=== PATIENT | female | born 1955 | race Caucasian/White ===

== ENCOUNTER 2017-04-10 07:19 | Day surgery (SDC) | payer OTHER ==
[~2017-04-10 07:19] MED LIST: RINGER'S SOLUTION,LACTATED 1,000 ML IV PRN
[2017-04-10] MEDS ORDERED: RINGER'S SOLUTION,LACTATED 1,000 ML IV ONE (08:16)
[2017-04-10] MEDS ORDERED: RINGER'S SOLUTION,LACTATED 1,000 ML IV PRN (09:13)
[2017-04-10 10:14] VITALS: BP 112/62
--- NOTE | 2017-04-10 14:23 | OR ---
Operative Report - Dictated Report Narrative: Operative Report Date of operation: 04/10/2017 Preoperative diagnosis: Epigastric pain. GERD symptoms despite medication Postoperative diagnosis: Chronic appearing gastropathy (pathology CLOtest pending) Operation: EGD with biopsies Surgeon: Dr Dee Anesthesia: JORDY PATRICK CRNA Indications for procedure: The patient is a 62-year-old female referred by Dr Andrade. She has epigastric and left upper quadrant pain and GERD symptoms despite medication. Findings: Chronic appearing gastropathy with fundic polyp formation (pathology CLOtest pending) Narrative of procedure: The patient was identified preoperatively, and prior to the administration of anesthetic a multidisciplinary timeout was observed With the patient in the recumbent position, a bite-block was placed, intravenous sedation administered, and the patient's eyes covered with a towel. The flexible fiberoptic gastroscope was advanced into the posterior pharynx which appeared normal. The supraglottic larynx appeared normal. The cords appeared normal, moved well, and opposed in the midline. The scope was advanced under direct vision into the proximal esophagus which appeared normal. The esophagus appeared freely distensible with normal mucosa. The esophageal mucosa appeared normal down to the gastroesophageal junction which was sharp and noninflamed. The GE junction appeared normally distensible. The scope was advanced into the stomach which was insufflated with air. There was a chronic appearing gastropathy with fundic polyp formation but no ginger ulcers or neoplastic lesions were appreciated including a retroflexed view of the gastric fundus. The scope was redirected toward the pylorus. The pylorus appeared patent. The scope was advanced into the duodenal bulb which appeared normal. The scope was advanced further to the horizontal portion of the duodenum which appeared normal, specifically the villous architecture appeared well preserved and clear bile was present. A biopsy of duodenal mucosa was obtained and submitted for pathology. The biopsy site was seen to be hemostatic. The scope was slowly withdrawn through the duodenal bulb with confirmation that no active ulcer was present. The scope was withdrawn into the stomach and outside sales account representative biopsies of gastric mucosa obtained for CLOtest and pathology. The biopsy sites were seen to be hemostatic. The insufflated air was removed from the stomach , the scope withdrawn from the patient, and the procedure terminated. The patient tolerated the anesthetic and procedure well without complication and was transferred back to the ambulatory surgery area awake and in stable condition. The patient remained stable throughout a period of postoperative observation, was able to tolerate po intake, and was up without assistance. I shared the operative findings with her and her , and she was given copies of the photographs which appear in the medical record. She was discharged home with instructions not to engage in hazardous activity today, but may return to normal activity tomorrow and advance diet as tolerated. She is to continue medications as listed in the history and physical exam. I made arrangements to contact the patient with the biopsy reports and will make further recommendation based upon that result. Reviewed and electronically signed
== END 2017-04-10 07:20 | disposition home or self-care (01) ==
LOC: AMB 07:19
PROVIDERS: ATTEND Surgery
PROC: 0DB68ZX Excision of Stomach, Via Natural or Artificial Opening Endoscopic, Diagnostic (ICD-10-PCS; 2017-04-10)
PROC: 0DB98ZX Excision of Duodenum, Via Natural or Artificial Opening Endoscopic, Diagnostic (ICD-10-PCS; principal; 2017-04-10 08:30)
DX: K31.7 Polyp of stomach and duodenum (principal); E03.9 Hypothyroidism, unspecified; M81.0 Age-related osteoporosis without current pathological fracture; M19.90 Unspecified osteoarthritis, unspecified site; F32.9 Major depressive disorder, single episode, unspecified; Z68.22 Body mass index [BMI] 22.0-22.9, adult

== ENCOUNTER 2019-04-24 03:58 | Inpatient (IN) ==
[2019-04-24] MEDS ORDERED: ONDANSETRON 4 MG TAB.RAPDIS PO ONE (04:41)
[2019-04-24] MEDS ORDERED: NORMAL SALINE 1,000 ML IV ONE ×2 (04:45→06:34)
[2019-04-24] MEDS ORDERED: ONDANSETRON HCL/PF 2 MG/ML VIAL IV ONE ×3 (04:46→08:12)
--- NOTE | 2019-04-24 04:54 | ERNOTE ---
Medical Problem HPI - Narrative Date of Service: 04/24/19 - General Chief Complaint: Nausea/Vomiting Time Seen by Provider: 04/24/19 04:23 Source: patient Exam Limitations: no limitations - Immun/Allergies/Home Medications Immunizations: IMMUNIZATION HX Immunizations Up to Date Yes History of Influenza Vaccine Yes Allergies/Adverse Reactions: Allergies Penicillins Allergy (Intermediate, Verified 04/24/19 04:23) Hives, Itching oxycodone [From Percocet] Allergy (Mild, Verified 04/24/19 04:23) Itching,rash propoxyphene [From Darvocet-N] Allergy (Mild, Verified 04/24/19 04:23) Itching, rash sulfamethoxazole [From Bactrim] Allergy (Mild, Verified 04/24/19 04:23) Other rash trimethoprim [From Bactrim] Allergy (Mild, Verified 04/24/19 04:23) Other rash morphine Allergy (Verified 04/24/19 04:23) sertraline Allergy (Verified 04/24/19 04:23) lightheaded, dizzy codeine Adverse Reaction (Intermediate, Verified 04/24/19 04:23) Other hallucinations fructose Adverse Reaction (Intermediate, Verified 04/24/19 04:23) Diarrhea and vomiting promethazine [From Phenergan] Adverse Reaction (Intermediate, Verified 04/24/19 04:23) Jitteriness metoclopramide [From Reglan] Adverse Reaction (Mild, Verified 04/24/19 04:23) Jitteriness Seasonal Allergies Adverse Reaction (Intermediate, Uncoded 04/24/19 04:23) rhinitis, itchy eyes Home Medications: HOME MEDICATIONS Esomeprazole Magnesium [Nexium] 40 mg PO DAILY 02/14/15 [Last Taken Unknown] Gabapentin 600 mg PO HS 02/14/15 [Last Taken Unknown] Loratadine [Claritin] 10 mg PO DAILY 02/14/15 [Last Taken Unknown] traMADol HCL [Ultram] 50 mg PO BID 02/14/15 [Last Taken Unknown] methotrexate sodium 2.5 mg tablet 2.5 mg PO Q7D tab 01/23/18 [Last Taken Unknown] folic acid 1 mg tablet 1 mg PO DAILY 01/27/18 [Last Taken Unknown] verapamil 120 mg 24 hr capsule,extended release 120 mg PO DAILY 30 Days #30 cap 08/24/18 [Last Taken Unknown] levothyroxine 50 mcg capsule 50 mcg PO DAILY #90 cap 11/19/18 [Last Taken Unknown] Meloxicam [Mobic] 15 mg PO DAILY 03/09/19 [Last Taken Unknown] Duloxetine HCl 30 mg PO DAILY 04/24/19 [Last Taken Unknown] Eszopiclone 3 mg PO HS 04/24/19 [Last Taken Unknown] - History of Present History Narrative: Patient is a 64 years old female who present complaining of abdominal pain, nausea, vomiting, dysuria and diarrhea, every 15 minutes since 8 PM, 9 hours ago. Patient reports eating chili at lunch yesterday, and started to feel not well shortly after. She rested all afternoon and then at around 8 PM this is when she started to feel sick. Her medical history is significant for total hysterectomy 22 years ago, 3 small bowel obstructions, pancreatitis, ankylosing spondylitis, seronegative inflammatory arthritis, and hepatitis A. She denies hematemesis, melena, and hematochezia. Timing: constant Severity: severe Modifying Factors - (Worsens): Present: other - smell of food, eating, or drinking anything Review of Systems - Review of Systems Constitutional: Present: fatigue. Absent: fever EYE: Absent: blurred vision Respiratory: Absent: shortness of breath Cardiology: Absent: chest pain Gastrointestinal/Abdominal: Present: nausea, vomiting, diarrhea, abdominal pain Genitourinary: Present: dysuria Musculoskeletal: Absent: back pain Neurological: Absent: anxiety, depressed Hematologic/Lymphatic: Absent: easy bruising All Other Systems: All systems neg except as marked Medical History (Last Reviewed 04/24/19 @ 04:23 by Claire Solomon RN) Adhesive capsulitis of shoulder Onset Date: Unknown Ankylosing spondylitis Onset Date: Unknown Depression Onset Date: ~2009 Dupuytrens contracture Onset Date: ~2009 Endometriosis Onset Date: Unknown Hormone replacement therapy Onset Date: 01/25/14 Inflammatory arthritis Onset Date: Unknown HLA-B27 Left shoulder pain Onset Date: Unknown Menopausal syndrome Onset Date: 02/07/15 Migraines Onset Date: Unknown Osteopenia Onset Date: Unknown Osteoporosis Onset Date: Unknown Partial small bowel obstruction Onset Date: ~10/2010 Uveitis Onset Date: Unknown Chronic Anterior Vaginitis Onset Date: 12/14/12 Vertigo Surgical History: Surgical History (Last Reviewed 04/24/19 @ 04:23 by Claire Solomon RN) H/O esophagogastroduodenoscopy Onset Date: 04/10/1707/18, 04/26/05-- Nemesio-mild antral gastritis. Joshua-mild chronic inflammation. Negative H. Pylori. Leila-Clotest negative, chronic inflammation. History of appendectomy Onset Date: ~1988 History of open reduction and internal fixation (ORIF) procedure Onset Date: ~1993 right ring finger History of total abdominal hysterectomy Onset Date: ~1998 BSO Normal colonoscopy Onset Date: 03/26/11 07/17/01 Nemesio-internal hemorrhoids. Tim-normal. Recheck 10 yrs. Removal of bowel adhesions Onset Date: Unknown Dr. 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 Highest education level completed: some college, no degree Service: No Tobacco: Smoking Status: Never smoker Alcohol: alcohol intake: never Substance Use: substance use type: does not use Dietary Habits: caffeine: Yes Type: carbonated beverages Exercise: Moderate/strenuous exercise - number of days: 3 Personal Safety: victim of emotional abuse: No victim of sexual abuse: No Physical Exam - Physical Exam General Appearance: Present: alert, moderate distress Head Exam: Present: normal inspection Eye Exam: Normal inspection: bilateral Ears, Nose, Throat: Present: normal ENT inspection Neck: Present: normal inspection Respiratory: Present: no respiratory distress Cardiovascular/Chest: Present: regular rate, rhythm Peripheral Pulses: N=norm/S=strong/W=weak/B=bound/A=absent: Radial (R): Normal, Radial (L): Normal, Femoral (R): Normal, Femoral (L): Normal, Dorsalis-pedis (R): Normal, Dorsalis-pedis (L): Normal Gastrointestinal/Abdominal: Present: normal bowel sounds, tenderness, distended, guarding. Absent: rebound Back Exam: Present: normal inspection Extremity Exam: Present: normal inspection Neurological Exam: Present: alert, oriented DTR: N=norm/NB=norm/brisk/A=abs/DD=dull/dimin/HC=hyperactive: Bicep (R): Normal, Bicep (L): Normal, Tricep (R): Normal, Tricep (L): Normal, Knee (R): Normal, Knee (L): Normal, Ankle (R): Normal, Ankle (L): Normal Skin Exam: Present: normal color Lymphatic Exam: Present: no adenopathy Progress - Vital Signs Vital Signs: Vital Signs 04/24/19 04:05 Temperature 36.3 C Pulse Rate 117 H Respiratory Rate 16 Blood Pressure 163/76 H O2 Sat by Pulse Oximetry 99 - Progress/Reassessment Chief Complaint: Nausea/Vomiting - Transfer of Care Expected Disposition: Admit Plan - Plan Plan: Patient is a 64 years old female who present with nausea vomiting and abdominal pain, and found to have a small bowel obstruction. Case discussed with Dr. Devine who accepted admission. Inserted a nasogastric tube prior to sending to the floor. Pain controlled with a dose of morphine and nausea control with Zofran IV. Departure Clinical Impression: Nausea and vomiting, Abdominal pain, Small bowel obstruction - Departure Disposition: Still a patient Condition: Fair Referrals: Jaky Antonio MD [Primary Care Provider] -
[2019-04-24 05:01] LABS: Hematocrit 37.8 % (37.0-47.0); Hemoglobin 12.2 gm/dL (12.5-16.0); Mean Cell Volume 83.8 fl (78-100); Mean Corpuscular Hemoglobin 27.1 pg (27-31); Red Blood Count 4.51 M/mm3 (4.2-5.4); White Blood Count 14.1 K/mm3 (4.0-10.5)
[2019-04-24 05:02] LABS: Mean Corpuscular Hgb Conc 32.3 g/dl (32-36); Neutrophil # 12.4 K/mm3 (1.3-6.0); Neutrophil % 88.5 % (42-75.0); Platelet Count 330 K/mm3 (150-450); Red Cell Distribution Width 16.1 % (11.5-14.0)
[2019-04-24 05:03] LABS: Urine Bilirubin Negative (NEGATIVE); Urine Ketone Large mg/dL (NEGATIVE); Urine Nitrite Negative (NEGATIVE); Urine Protein 30 mg/dL (NEGATIVE); Urine Specific Gravity 1.025 SP.GR. (1.005-1.010); Urine Urobilinogen Normal (NORMAL)
[2019-04-24 05:19] LABS: Urine Appearance Slightly Cloudy (CLEAR); Urine Bacteria 1+; Urine Blood 10 /ul (NEGATIVE); Urine Color Yellow; Urine Mucus Moderate - 2+; Urine RBC None Seen /hpf (0-5); Urine WBC TRACE /hpf (0-5)
[2019-04-24 05:22] LABS: Troponin I Less than 0.017 ng/mL (0.00-0.10)
[2019-04-24 05:28] LABS: ALT 34 U/L (19-67); AST 30 U/L (0-48); Albumin * 4.6 gm/dl (3.4-5.0); Alkaline Phosphatase * 102 U/L (50-170); BUN/Creatinine Ratio 16.3 (9.0-21.6); Bilirubin, Total 0.6 mg/dL (0.0-1.1); Blood Urea Nitrogen 20 mg/dL (3-23); Calcium * 9.8 mg/dL (7.9-10.9); Carbon Dioxide 24.2 mmol/L (24-32.6); Chloride 100 mmol/L (97-106); Glucose * 152 mg/dL (70-110); Lipase 118 U/L (73-393); Potassium 3.2 mmol/L (3.4-4.6); Sodium 140 mmol/L (132-142); Total Protein 9.4 gm/dL (6.2-8.2)
[2019-04-24] MEDS ORDERED: MORPHINE SULFATE 4 MG/ML SYRG IV ONE (05:45)
[2019-04-24] MEDS ORDERED: TETRACAINE/BENZOCAINE/BUTAMBEN 56 SPRAY BTL TP ONE ×2 (07:52→07:53)
[2019-04-24] MEDS ORDERED: ONDANSETRON HCL/PF 2 MG/ML VIAL ONE (08:11)
[2019-04-24] MEDS: KETOROLAC TROMETHAMINE 30 MG/ML VIAL IV PRN ×2 (09:53→15:47)
[2019-04-24] MEDS: ONDANSETRON HCL/PF 2 MG/ML VIAL IV PRN ×2 (13:41→18:02)
[2019-04-24] MEDS ORDERED: TETRACAINE/BENZOCAINE/BUTAMBEN 56 SPRAY BTL TP PRN (15:52)
[2019-04-24] MEDS ORDERED: TETRACAINE/BENZOCAINE/BUTAMBEN 20 SPRAY BTL TP ONE (16:06)
[2019-04-24] MEDS: DEXTROSE 5%-0.5 NORMAL SALINE 1,000 ML IV PRN (20:19)
[2019-04-24] MEDS: MORPHINE SULFATE 4 MG/ML SYRG IV PRN (20:30)
[2019-04-24] MEDS: METOCLOPRAMIDE HCL 5 MG/ML VIAL IV PRN (21:37)
--- NOTE | 2019-04-24 23:36 | HP ---
Chief Complaint - Chief Complaint Date of Service: 04/24/19 Time of Service: 13:00 Chief Complaint: Abdominal pain History of Present Illness: Nora is a 64 yo female with prior history of small bowel obstruction (3 prior episodes all treated conservatively). She reports history of abdominal hysterectomy due to endometriosis and appendectomy. Her last small bowel obstruction was 4 years ago. She denies any recent change in health. She reports yesterday at noon she first noticed lower abdominal pain, then nausea and vomiting. She has continued to have bowel movements and reports a bowel movement that was loose this morning. She denies blood in stool or emesis. She has no other changes. She presented to the ER. Imaging shows small bowel obstruction. She was given an NG tube and green fluid returned. Imaging showed correct pos itioning of NG tube. Medical History (Last Reviewed 04/24/19 @ 08:57 by Kaylynn Myles RN) Adhesive capsulitis of shoulder Onset Date: Unknown Ankylosing spondylitis Onset Date: Unknown Depression Onset Date: ~2009 Dupuytrens contracture Onset Date: ~2009 Endometriosis Onset Date: Unknown Hormone replacement therapy Onset Date: 01/25/14 Inflammatory arthritis Onset Date: Unknown HLA-B27 Left shoulder pain Onset Date: Unknown Menopausal syndrome Onset Date: 02/07/15 Migraines Onset Date: Unknown Osteopenia Onset Date: Unknown Osteoporosis Onset Date: Unknown Partial small bowel obstruction Onset Date: ~10/2010 Uveitis Onset Date: Unknown Chronic Anterior Vaginitis Onset Date: 12/14/12 Vertigo Surgical History: Surgical History (Last Reviewed 04/24/19 @ 08:57 by Kaylynn Myles RN) H/O esophagogastroduodenoscopy Onset Date: 04/10/1707/18, 04/26/05--02' Nemesio-mild antral gastritis. Joshua-mild chronic inflammation. Negative H. Pylori. Leila-Clotest negative, chronic inflammation. History of appendectomy Onset Date: ~1988 History of open reduction and internal fixation (ORIF) procedure Onset Date: ~1993 right ring finger History of total abdominal hysterectomy Onset Date: ~1998 BSO Normal colonoscopy Onset Date: 03/26/11 07/17/01 Nemesio-internal hemorrhoids. 11' Tim-normal. Recheck 10 yrs. Removal of bowel adhesions Onset Date: Unknown Dr. 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 Highest education level completed: some college, no degree Service: No Tobacco: Smoking Status: Never smoker Alcohol: alcohol intake: never Substance Use: substance use type: does not use Dietary Habits: caffeine: Yes Type: carbonated beverages Exercise: Moderate/strenuous exercise - number of days: 3 Personal Safety: victim of emotional abuse: No victim of sexual abuse: No Review Of Systems (GEN) - Review of Systems Generalized/Overall Review: Absent: Weakness, Chills, Fever EENTM: Present: No Symptoms Reported Respiratory: Absent: Cough, Shortness of Breath Cardiac: Absent: Chest Pain, Edema, Palpitations Abdominal: Present: Nausea, Vomiting, Abdominal Pain. Absent: Hematemesis, Constipation, Diarrhea, Melena, Bright blood from rectum Genitourinary: Present: No Symptoms Reported Musculoskeletal: Present: No Symptoms Reported Neurological: Present: No Symptoms Reported Skin: Present: No Symptoms Reported Immunizations: IMMUNIZATION HX Immunizations Up to Date Yes History of Influenza Vaccine Yes Allergies/Adverse Reactions: Allergies Allergy/AdvReac Type Severity Reaction Status Date / Time Penicillins Allergy Intermediate Hives, Verified 04/24/19 08:59 Itching oxycodone [From Percocet] Allergy Mild Itching,liz Verified 04/24/19 08:59 h propoxyphene Allergy Mild Itching, Verified 04/24/19 08:59 [From Darvocet-N] rash sulfamethoxazole Allergy Mild Other Verified 04/24/19 08:59 [From Bactrim] trimethoprim [From Bactrim] Allergy Mild Other Verified 04/24/19 08:59 sertraline Allergy lightheaded, Verified 04/24/19 08:59 dizzy codeine AdvReac Intermediate Other Verified 04/24/19 08:59 fructose AdvReac Intermediate Diarrhea Verified 04/24/19 08:59 and vomiting promethazine [From Phenergan] AdvReac Intermediate Jitteriness Verified 04/24/19 08:59 metoclopramide [From Reglan] AdvReac Mild Jitteriness Verified 04/24/19 08:59 Seasonal Allergies AdvReac Intermediate rhinitis, Uncoded 04/24/19 08:59 itchy eyes Home Medications: HOME MEDICATIONS Esomeprazole Magnesium [Nexium] 40 mg PO DAILY 02/14/15 [Last Taken 04/23/19] Gabapentin 600 mg PO HS 02/14/15 [Last Taken 04/22/19] Loratadine [Claritin] 10 mg PO DAILY 02/14/15 [Last Taken 04/23/19] traMADol HCL [Ultram] 50 mg PO BID 02/14/15 [Last Taken 04/22/19] methotrexate sodium 2.5 mg tablet 2.5 mg PO Q7D tab 01/23/18 [Last Taken 1 06/17/18] folic acid 1 mg tablet 1 mg PO HS 01/27/18 [Last Taken 04/22/19] verapamil 120 mg 24 hr capsule,extended release 120 mg PO DAILY 30 Days #30 cap 08/24/18 [Last Taken 04/22/19] levothyroxine 50 mcg capsule 50 mcg PO DAILY #90 cap 11/19/18 [Last Taken 04/23/19] Meloxicam [Mobic] 15 mg PO HS 03/09/19 [Last Taken 04/22/19] Duloxetine HCl 30 mg PO HS 04/24/19 [Last Taken 04/23/19] Eszopiclone 3 mg PO HS 04/24/19 [Last Taken 04/22/19] inFLIXimab [Remicade (INFLIXIMAB)] 100 mg IV ONCE 04/24/19 [Last Taken 04/20/19] Exam - Exam Vital Signs: Vital Signs - Last Taken Temp 36.6 C 04/24/19 23:00 Pulse 94 04/24/19 23:00 Resp 18 04/24/19 23:00 BP 112/52 04/24/19 23:00 Pulse Ox 96 04/24/19 23:00 Constitutional: Present: Alert, Oriented x3, Cooperative ENT Exam: Present: normal ENT inspection, hearing grossly normal Eye Exam: bilateral eye: normal inspection Respiratory: Present: lungs clear, normal breath sounds Cardiovascular/Chest: Present: regular rate, rhythm, no murmur Abdomen: Present: Normal bowel sounds, soft, no rebound tenderness, no hepatospenomegaly, tender. Absent: guarding Extremity: Present: normal inspection Skin Exam: Present: normal color, warm/dry, no cyanosis Neurologic: Present: alert, normal mood/affect, oriented x 3 Appearance: Present: appropriate appearance, appropriate insight Eye contact: Present: cooperative, good eye contact, normal speech Thoughts: Present: normal thought pattern, no apparent hallucination Diagnostic Studies: Abnormal Lab Results 04/24/19 04/24/19 04/24/19 Range/Units 04:54 04:55 04:55 WBC 14.1 H (4.0-10.5) K/mm3 Hgb 12.2 L (12.5-16.0) gm/dL RDW 16.1 H (11.5-14.0) % Immature Gran # (Auto) 0.04 H (0.000-0.0310) K/mm3 Neutrophils % 88.5 H (42-75.0) % Lymphocytes % 7.5 L (20-51) % Neutrophils # 12.4 H (1.3-6.0) K/mm3 Lymphocytes # 1.06 L (1.5-3.5) k/mm3 Potassium 3.2 L (3.4-4.6) mmol/L Anion Gap 19.0 H (6.8-13.8) mmol/L Est GFR (Non-Af Amer) 47 L D (60-130) mL/min Random Glucose 152 H (70-110) mg/dL Lactic Acid, Venous (0.4-2.0) mmol/L Total Protein 9.4 H (6.2-8.2) gm/dL Procalcitonin (0.05-0.50) ng/mL Urine Protein 30 H (NEGATIVE) mg/dL Urine Blood 10 H (NEGATIVE) /ul Prot Sulfosalicylic Acd 3+ H (0) mg/dL Urine WBC Trace H (0-5) /hpf Urine Bacteria 1+ H (NONE) Urine Mucus Moderate - 2+ H (NONE) 04/24/19 04/24/19 04/24/19 Range/Units 04:55 07:39 07:44 WBC (4.0-10.5) K/mm3 Hgb (12.5-16.0) gm/dL RDW (11.5-14.0) % Immature Gran # (Auto) (0.000-0.0310) K/mm3 Neutrophils % (42-75.0) % Lymphocytes % (20-51) % Neutrophils # (1.3-6.0) K/mm3 Lymphocytes # (1.5-3.5) k/mm3 Potassium (3.4-4.6) mmol/L Anion Gap (6.8-13.8) mmol/L Est GFR (Non-Af Amer) (60-130) mL/min Random Glucose (70-110) mg/dL Lactic Acid, Venous 2.1 H 4.3 H* (0.4-2.0) mmol/L Total Protein (6.2-8.2) gm/dL Procalcitonin Less than 0.05 L (0.05-0.50) ng/mL Urine Protein (NEGATIVE) mg/dL Urine Blood (NEGATIVE) /ul Prot Sulfosalicylic Acd (0) mg/dL Urine WBC (0-5) /hpf Urine Bacteria (NONE) Urine Mucus (NONE) Laboratory Results WBC 14.1 K/mm3 (4.0-10.5) H 04/24/19 04:55 RBC 4.51 M/mm3 (4.2-5.4) 04/24/19 04:55 Hgb 12.2 gm/dL (12.5-16.0) L 04/24/19 04:55 Hct 37.8 % (37.0-47.0) 04/24/19 04:55 MCV 83.8 fl (78-100) 04/24/19 04:55 MCH 27.1 pg (27-31) 04/24/19 04:55 MCHC 32.3 g/dl (32-36) 04/24/19 04:55 RDW 16.1 % (11.5-14.0) H 04/24/19 04:55 Plt Count 330 K/mm3 (150-450) 04/24/19 04:55 MPV 10.0 fl (8-12.5) 04/24/19 04:55 Immature Gran % (Auto) 0.30 % (0.001-0.429) 04/24/19 04:55 Immature Gran # (Auto) 0.04 K/mm3 (0.000-0.0310) H 04/24/19 04:55 Neutrophils % 88.5 % (42-75.0) H 04/24/19 04:55 Lymphocytes % 7.5 % (20-51) L 04/24/19 04:55 Monocytes % 3.6 % (0.0-9) 04/24/19 04:55 Eosinophils % 0.0 % (0.0-3.0) 04/24/19 04:55 Basophils % 0.1 % (0.0-1.0) 04/24/19 04:55 Nucleated RBC % 0.0 k/mm3 (0-1) 04/24/19 04:55 Neutrophils # 12.4 K/mm3 (1.3-6.0) H 04/24/19 04:55 Lymphocytes # 1.06 k/mm3 (1.5-3.5) L 04/24/19 04:55 Monocytes # 0.5 k/mm3 (0.0-1.0) 04/24/19 04:55 Eosinophils # 0.0 k/mm3 (0.0-0.7) 04/24/19 04:55 Absolute Basophils 0.0 k/mm3 (0.0-0.1) 04/24/19 04:55 Sodium 140 mmol/L (132-142) 04/24/19 04:55 Plasma Sodium 141 mmol/L (130-142) 04/24/19 04:55 Potassium 3.2 mmol/L (3.4-4.6) L 04/24/19 04:55 Chloride 100 mmol/L (97-106) 04/24/19 04:55 Carbon Dioxide 24.2 mmol/L (24-32.6) 04/24/19 04:55 Anion Gap 19.0 mmol/L (6.8-13.8) H 04/24/19 04:55 BUN 20 mg/dL (3-23) 04/24/19 04:55 Creatinine 1.23 mg/dL (0.4-1.4) 04/24/19 04:55 Est GFR (Non-Af Amer) 47 mL/min (60-130) L D 04/24/19 04:55 BUN/Creatinine Ratio 16.3 (9.0-21.6) 04/24/19 04:55 Random Glucose 152 mg/dL (70-110) H 04/24/19 04:55 Lactic Acid, Venous 4.3 mmol/L (0.4-2.0) H* 04/24/19 07:44 Calcium 9.8 mg/dL (7.9-10.9) 04/24/19 04:55 Calcium Adj for Albumin 9.0 mg/dL (8.4-10.2) 04/24/19 04:55 Total Bilirubin 0.6 mg/dL (0.0-1.1) 04/24/19 04:55 AST 30 U/L (0-48) 04/24/19 04:55 ALT 34 U/L (19-67) 04/24/19 04:55 Alkaline Phosphatase 102 U/L (50-170) 04/24/19 04:55 Creatine Kinase Cancelled 04/24/19 04:55 CK-MB (CK-2) Cancelled 04/24/19 04:55 CK-MB (CK-2) Rel Index Cancelled 04/24/19 04:55 Troponin I Less than 0.017 ng/mL (0.00-0.10) 04/24/19 04:55 C-Reactive Prot, Quant Less than 0.2 mg/dL (0.0-0.9) 04/24/19 04:55 Total Protein 9.4 gm/dL (6.2-8.2) H 04/24/19 04:55 Albumin 4.6 gm/dl (3.4-5.0) 04/24/19 04:55 Lipase 118 U/L (73-393) 04/24/19 04:55 Procalcitonin Less than 0.05 ng/mL (0.05-0.50) L 04/24/19 04:55 Urine Color Yellow 04/24/19 04:54 Urine Appearance Slightly cloudy (CLEAR) 04/24/19 04:54 Urine pH 7.0 pH (5.0-7.0) 04/24/19 04:54 Ur Specific [place] 1.025 SP.GR. (1.005-1.010) 04/24/19 04:54 Urine Protein 30 mg/dL (NEGATIVE) H 04/24/19 04:54 Urine Glucose (UA) Negative mg/dL (NEGATIVE) 04/24/19 04:54 Urine Ketones Large mg/dL (NEGATIVE) 04/24/19 04:54 Urine Blood 10 /ul (NEGATIVE) H 04/24/19 04:54 Urine Nitrate Negative (NEGATIVE) 04/24/19 04:54 Urine Bilirubin Negative mg/dl (NEGATIVE) 04/24/19 04:54 Prot Sulfosalicylic Acd 3+ mg/dL (0) H 04/24/19 04:54 Urine Urobilinogen Normal EU/dl (NORMAL) 04/24/19 04:54 Ur Leukocyte Esterase Negative /ul (NEGATIVE) 04/24/19 04:54 Urine RBC None seen /hpf (0-5) 04/24/19 04:54 Urine WBC Trace /hpf (0-5) H 04/24/19 04:54 Ur Epithelial Cells None seen /hpf (0-5) 04/24/19 04:54 Urine Bacteria 1+ (NONE) H 04/24/19 04:54 Urine Mucus Moderate - 2+ (NONE) H 04/24/19 04:54 Urine Culture Comments Culture to follow 04/24/19 04:54 Influenza Type A Ag Negative (NEGATIVE) 04/24/19 05:00 Influenza Type B Ag Negative (NEGATIVE) 04/24/19 05:00 Assessment/Plan - Narrative Narrative: Nora is a 64 yo female with small bowel obstruction. She will be NPO, NG tube on suction, will work on pain control. Once pain is resolved will clamp tube and trial clears. She has a prior history of abdominal surgeries and prior bowel obstructions but these were all resolved conservatively. Will consult surgery if conservative approach fails. Expect 2-3 midnights to resolve bowel obstruction. - Assessment/Plan (1) Small bowel obstruction Problem: Acute
[2019-04-25] MEDS: ONDANSETRON HCL/PF 2 MG/ML VIAL IV PRN ×3 (02:01→15:10)
[2019-04-25] MEDS: MORPHINE SULFATE 4 MG/ML SYRG IV PRN (03:42)
[2019-04-25] MEDS: METOCLOPRAMIDE HCL 5 MG/ML VIAL IV PRN (03:46)
[2019-04-25] MEDS: MORPHINE SULFATE 2 MG/ML DISP.SYRIN IV PRN ×3 (08:08→17:38)
[2019-04-25] MEDS: DEXTROSE 5%-0.5 NORMAL SALINE 1,000 ML IV PRN (11:39)
[2019-04-25] MEDS: CIPROFLOXACIN IN 5 % DEXTROSE 400 MG/200 ML BAG IV SCH (20:41)
--- NOTE | 2019-04-25 23:30 | PN ---
Subjective - Date and Time Seen Date: 04/25/19 Time: 09:00 Subjective Narrative: Nora feels better today. She is having bowel movement and passing gas. Overnight NG tube lost positioning. Repeat xray shows tube is out of esophagus. Mild abdominal pain. Objective - Vitals Vitals: Last Vital Signs Temp 37.0 C 04/25/19 18:14 Pulse 72 04/25/19 18:14 Resp 20 04/25/19 18:14 BP 108/65 04/25/19 18:14 Pulse Ox 100 04/25/19 18:14 - Abnormal Lab Findings Abnormal Lab Findings: Abnormal Lab Results 04/24/19 04/24/19 Range/Units 04:50 07:39 Lactic Acid, Venous 4.3 H* 2.1 H (0.4-2.0) mmol/L - Exam Constitutional: Present: Alert, Oriented x3, Cooperative Respiratory: Present: normal breath sounds, no respiratory distress Cardiovascular/Chest: Present: regular rate, rhythm, no murmur Abdomen: Present: Normal bowel sounds, soft, nondistended, tender - bilateral lower abdomen Skin Exam: Present: normal color, warm/dry, no cyanosis Assessment/Plan Plan Narrative: Small bowel obstruction, treating conservatively. NG was accidentally pulled out of esophagus but remains in oropharynx overnight. Will leave in place but not use as I believe it would be more uncomfortable to remove and have to put back in than to leave in place and advance if needed. Currently as she is feeling better I plan to clamp NG, leave in place, and trial clear liquid. If clear liquid trial fails will advance tube and return to NPO, if she tolerates will advance diet. - Problems/Diagnosis (1) Small bowel obstruction Problem: Acute
[2019-04-26] MEDS: MORPHINE SULFATE 2 MG/ML DISP.SYRIN IV PRN (00:13)
[2019-04-26] MEDS: DEXTROSE 5%-0.5 NORMAL SALINE 1,000 ML IV PRN ×2 (02:28→18:11)
[2019-04-26] MEDS: KETOROLAC TROMETHAMINE 30 MG/ML VIAL IV PRN ×2 (06:59→19:02)
[2019-04-26] MEDS: CIPROFLOXACIN IN 5 % DEXTROSE 400 MG/200 ML BAG IV SCH ×2 (09:34→19:25)
--- NOTE | 2019-04-26 11:37 | PN ---
Subjective - Date and Time Seen Date: 04/26/19 Time: 08:58 Subjective Narrative: She states she feels better today. Abdominal pain has improved and she would like to try drinking liquids. Objective - Review of Systems Generalized/Overall Review: Denies: Fever Respiratory: Denies: Shortness of Breath Cardiac: Denies: Chest Pain Abdominal: Reports: Abdominal Pain - Mild and her supra pubic region. Denies: Nausea, Vomiting Misc: All systems neg except as marked - Vitals Vitals: Last Vital Signs Temp 36.9 C 04/26/19 10:40 Pulse 76 04/26/19 10:40 Resp 12 04/26/19 10:40 BP 134/78 04/26/19 10:40 Pulse Ox 99 04/26/19 10:40 - Exam Constitutional: Present: Alert, Cooperative, Well developed, Well nourished, Middle aged ENT Exam: Present: normal ENT inspection, hearing grossly normal Neck: Present: non-tender, supple, trachea midline. Absent: lymphadenopathy (R), lymphadenopathy (L) Respiratory: Present: lungs clear, no respiratory distress, no accessory muscle use, No rales, No wheezing. Absent: crackles Cardiovascular/Chest: Present: normal peripheral pulses, no edema, no murmur Abdomen: Present: Normal bowel sounds, soft, tender - Mild tenderness with deep palpation in the suprapubic region Extremity: Present: no pedal edema Skin Exam: Present: normal color, warm/dry Neurologic: Present: alert, normal mood/affect Appearance: Present: appropriate appearance, appropriate insight Eye contact: Present: cooperative, good eye contact Thoughts: Present: normal thought pattern, normal mood /affect Assessment/Plan Plan Narrative: 64-year-old female with a past medical history of depression, endometriosis status post hysterectomy, 3 partial small bowel obstructions, migraines, osteoporosis, vertigo, arthritis presents with complaints of abdominal pain. She was admitted for a small bowel obstruction. She is doing better today. The NG tube is out. She is not having nausea or vomiting. She would like to try advancing her diet. Plan #1 Advance to a clear liquid diet, no carbonation #2 continue with pain management, Toradol #3 monitor CBC and CMP #4 replete potassium as needed #5 Resume home medications for comorbidities. - Problems/Diagnosis (1) Nausea and vomiting Problem: Acute (2) Small bowel obstruction Problem: Acute (3) Hypokalemia due to excessive gastrointestinal loss of potassium Problem: Acute (4) Inflammatory polyarthropathy of multiple sites Problem: Chronic (5) Hypothyroidism Problem: Chronic Qualifiers: Hypothyroidism type: acquired Qualified Code(s): E03.9 - Hypothyroidism, unspecified
[2019-04-26] MEDS: METOCLOPRAMIDE HCL 5 MG/ML VIAL IV PRN ×2 (12:06→19:02)
[2019-04-26] MEDS: PANTOPRAZOLE SODIUM 40 MG TABLET.EC PO SCH (12:18)
[2019-04-26] MEDS: LEVOTHYROXINE SODIUM 50 MCG TABLET PO SCH (12:18)
[2019-04-26 13:36] LABS: Hematocrit 31.4 % (37.0-47.0); Mean Cell Volume 85.3 fl (78-100); Mean Corpuscular Hemoglobin 27.2 pg (27-31); Mean Corpuscular Hgb Conc 31.8 g/dl (32-36); Mean Platelet Volume 10.1 fl (8-12.5); Neutrophil # 4.8 K/mm3 (1.3-6.0); Neutrophil % 66.1 % (42-75.0); Platelet Count 258 K/mm3 (150-450); Red Blood Count 3.68 M/mm3 (4.2-5.4); Red Cell Distribution Width 16.5 % (11.5-14.0); White Blood Count 7.3 K/mm3 (4.0-10.5)
[2019-04-26 13:50] LABS: Albumin * 3.6 gm/dl (3.4-5.0); Anion Gap 13.3 mmol/L (6.8-13.8); BUN/Creatinine Ratio 8.5 (9.0-21.6); Bilirubin, Total 0.4 mg/dL (0.0-1.1); Ca. Corrected For Albumin 7.9 mg/dL (8.4-10.2); Calcium * 7.9 mg/dL (7.9-10.9); Carbon Dioxide 24.3 mmol/L (24-32.6); Potassium 2.6 mmol/L (3.4-4.6); Total Protein 7.6 gm/dL (6.2-8.2)
[2019-04-26] MEDS: POTASSIUM BICARBONATE/CIT AC 25 MEQ TABLET.EFF PO SCH ×2 (17:32→21:44)
[2019-04-26] MEDS ORDERED: GABAPENTIN 300 MG CAPSULE PO SCH (21:00)
[2019-04-26] MEDS ORDERED: DULoxetine HCL 30 MG CAPSULE.SA PO SCH (21:00)
[2019-04-26] MEDS ORDERED: FOLIC ACID 1 MG TABLET PO SCH (21:00)
[2019-04-27] MEDS: POTASSIUM CHLORIDE IN WATER 100 ML IV SCH ×5 (01:27→07:44)
[2019-04-27 06:30] LABS: Hematocrit 28.9 % (37.0-47.0); Hemoglobin 9.4 gm/dL (12.5-16.0); Mean Cell Volume 84.3 fl (78-100); Mean Corpuscular Hemoglobin 27.4 pg (27-31); Mean Corpuscular Hgb Conc 32.5 g/dl (32-36); Neutrophil # 3.4 K/mm3 (1.3-6.0); Neutrophil % 54.9 % (42-75.0); Platelet Count 244 K/mm3 (150-450); Red Blood Count 3.43 M/mm3 (4.2-5.4); Red Cell Distribution Width 16.5 % (11.5-14.0); White Blood Count 6.2 K/mm3 (4.0-10.5)
[2019-04-27 07:01] LABS: Albumin * 3.3 gm/dl (3.4-5.0); Anion Gap 12.4 mmol/L (6.8-13.8); BUN/Creatinine Ratio 7.8 (9.0-21.6); Bilirubin, Total 0.4 mg/dL (0.0-1.1); Ca. Corrected For Albumin 7.9 mg/dL (8.4-10.2); Calcium * 7.7 mg/dL (7.9-10.9); Potassium 3.4 mmol/L (3.4-4.6)
[2019-04-27] MEDS: PANTOPRAZOLE SODIUM 40 MG TABLET.EC PO SCH (07:47)
[2019-04-27] MEDS: LEVOTHYROXINE SODIUM 50 MCG TABLET PO SCH (07:47)
[2019-04-27] MEDS: POTASSIUM BICARBONATE/CIT AC 25 MEQ TABLET.EFF PO SCH (08:43)
[2019-04-27] MEDS ORDERED: VERAPAMIL HCL 120 MG TABLET.SA PO SCH (09:00)
[2019-04-27] MEDS ORDERED: LORATADINE 10 MG TABLET PO SCH (09:00)
[2019-04-27] MEDS: CIPROFLOXACIN IN 5 % DEXTROSE 400 MG/200 ML BAG IV SCH (09:05)
[2019-04-27] MEDS: ONDANSETRON HCL/PF 2 MG/ML VIAL IV PRN (09:06)
[2019-04-27] MEDS: DEXTROSE 5%-0.5 NORMAL SALINE 1,000 ML IV PRN (09:28)
--- NOTE | 2019-04-27 09:43 | DS ---
(1) Nausea and vomiting Problem: Acute (2) Small bowel obstruction Problem: Resolved (3) Hypokalemia due to excessive gastrointestinal loss of potassium Problem: Resolved (4) Inflammatory polyarthropathy of multiple sites Problem: Chronic (5) Hypothyroidism Problem: Chronic Qualifiers: Hypothyroidism type: acquired Qualified Code(s): E03.9 - Hypothyroidism, unspecified Description of Stay: 64-year-old female with a past medical history of depression, endometriosis status post hysterectomy, 3 partial small bowel obstructions, migraines, osteoporosis, vertigo, arthritis presents with complaints of abdominal pain. She was admitted for a small bowel obstruction. She was treated with conservative medical management. She had an NG tube placed which has been removed. She denies any more nausea vomiting. Her abdominal pain is also improved. She is tolerating a diet. Her urine culture is positive for Streptococcus which is sensitive to Levaquin. She has been on ciprofloxacin for 3 days since admission. Today she complains of mild burning with urination and mild lower abdominal cramping with urination so I will continue her ciprofloxacin. I will send her home on ciprofloxacin 500 mg twice for 4 more days, total 7 days. She will follow-up with me in one in the office. Procedures Performed: none Results and Findings: Pending Mircobiology Results 04/24/19 05:20 Blood Blood Culture - Preliminary NO GROWTH AFTER 48 HOURS 04/24/19 04:55 Blood Blood Culture - Preliminary NO GROWTH AFTER 48 HOURS Lab Pending Results 04/24/19 04:50: Lactic Acid, Venous 4.3 H* 04/24/19 04:54: Urine Color Yellow, Urine Appearance Slightly cloudy, Urine pH 7.0, Ur Specific Kermit 1.025, Urine Protein 30 H, Urine Glucose (UA) Negative, Urine Ketones Large, Urine Blood 10 H, Urine Nitrate Negative, Urine Bilirubin Negative, Prot Sulfosalicylic Acd 3+ H, Urine Urobilinogen Normal, Ur Leukocyte Esterase Negative, Urine RBC None seen, Urine WBC Trace H, Ur Epithelial Cells None seen, Urine Bacteria 1+ H, Urine Mucus Moderate - 2+ H, Urine Culture Comments Culture to follow 04/24/19 04:55: Sodium 140, Plasma Sodium 141, Potassium 3.2 L, Chloride 100, Carbon Dioxide 24.2, Anion Gap 19.0 H, BUN 20, Creatinine 1.23, Est GFR (Non-Af Amer) 47 L D, BUN/Creatinine Ratio 16.3, Random Glucose 152 H, Calcium 9.8, Calcium Adj for Albumin 9.0, Total Bilirubin 0.6, AST 30, ALT 34, Alkaline Phosphatase 102, Creatine Kinase Cancelled, CK-MB (CK-2) Cancelled, CK-MB (CK-2) Rel Index Cancelled, Troponin I Less than 0.017, C-Reactive Prot, Quant Less than 0.2, Total Protein 9.4 H, Albumin 4.6, Lipase 118 04/24/19 04:55: WBC 14.1 H, RBC 4.51, Hgb 12.2 L, Hct 37.8, MCV 83.8, MCH 27.1, MCHC 32.3, RDW 16.1 H, Plt Count 330, MPV 10.0, Immature Gran % (Auto) 0.30, Immature Gran # (Auto) 0.04 H, Neutrophils % 88.5 H, Lymphocytes % 7.5 L, Monocytes % 3.6, Eosinophils % 0.0, Basophils % 0.1, Nucleated RBC % 0.0, Neutrophils # 12.4 H, Lymphocytes # 1.06 L, Monocytes # 0.5, Eosinophils # 0.0, Absolute Basophils 0.0 04/24/19 04:55: Procalcitonin Less than 0.05 L 04/24/19 05:00: Influenza Type A Ag Negative, Influenza Type B Ag Negative 04/24/19 07:39: Lactic Acid, Venous Cancelled 04/24/19 07:39: Lactic Acid, Venous 2.1 H 04/24/19 07:44: Lactic Acid, Venous Cancelled 04/26/19 13:00: WBC 7.3 D, RBC 3.68 L, Hgb 10.0 L, Hct 31.4 L, MCV 85.3, MCH 27.2, MCHC 31.8 L, RDW 16.5 H, Plt Count 258, MPV 10.1, Immature Gran % (Auto) 0.30, Immature Gran # (Auto) 0.02, Neutrophils % 66.1, Lymphocytes % 22.6, Monocytes % 10.4 H, Eosinophils % 0.3, Basophils % 0.3, Nucleated RBC % 0.0, Neutrophils # 4.8, Lymphocytes # 1.65, Monocytes # 0.8, Eosinophils # 0.0, Absolute Basophils 0.0 04/26/19 13:20: Sodium 139, Plasma Sodium 139, Potassium 2.6 L, Chloride 104, Carbon Dioxide 24.3, Anion Gap 13.3, BUN 7 D, Creatinine 0.82, Est GFR (Non-Af Amer) 75 D, BUN/Creatinine Ratio 8.5 L, Random Glucose 111 H, Calcium 7.9, Calcium Adj for Albumin 7.9 L, Total Bilirubin 0.4, AST 28, ALT 27, Alkaline Phosphatase 74, Total Protein 7.6, Albumin 3.6 04/27/19 06:26: WBC 6.2, RBC 3.43 L, Hgb 9.4 L, Hct 28.9 L, MCV 84.3, MCH 27.4, MCHC 32.5, RDW 16.5 H, Plt Count 244, MPV 10.0, Immature Gran % (Auto) 0.30, Immature Gran # (Auto) 0.02, Neutrophils % 54.9, Lymphocytes % 31.4, Monocytes % 12.0 H, Eosinophils % 1.1, Basophils % 0.3, Nucleated RBC % 0.0, Neutrophils # 3.4, Lymphocytes # 1.93, Monocytes # 0.7, Eosinophils # 0.1, Absolute Basophils 0.0 04/27/19 06:26: Sodium 137, Plasma Sodium 137, Potassium 3.4 D, Chloride 106, Carbon Dioxide 22.0 L, Anion Gap 12.4, BUN 5, Creatinine 0.64, Est GFR (Non-Af Amer) 100 D, BUN/Creatinine Ratio 7.8 L, Random Glucose 111 H, Calcium 7.7 L, Calcium Adj for Albumin 7.9 L, Total Bilirubin 0.4, AST 28, ALT 24, Alkaline Phosphatase 62, Total Protein 7.0, Albumin 3.3 L Discharge Location: Home Disposition: Home self-care Condition: Fair Discharge Activity: Activity as tolerated Discharge Diet: General/regular food Referrals: Jaky Antonio MD [Primary Care Provider] - Problem Oriented Discharge Instructions to Patient/Family: Form - Excuse from Work, School, or Physical Activity Prescriptions (Any new or edited meds): Ciprofloxacin HCl 500 mg PO BID #8 tab Transmission Status: Pending to [place], [place] Metoclopramide HCl [Metoclopramide HCl Odt] 10 mg PO Q8H #9 tab.rapdis Transmission Status: Pending to [facility], [place], [place] Complete Home Medications List: Complete Home Medication List: Esomeprazole Magnesium [Nexium] 40 mg PO DAILY 02/14/15 Gabapentin 600 mg PO HS 02/14/15 Loratadine [Claritin] 10 mg PO DAILY 02/14/15 traMADol HCL [Ultram] 50 mg PO BID 02/14/15 methotrexate sodium 2.5 mg tablet 2.5 mg PO Q7D tab 01/23/18 folic acid 1 mg tablet 1 mg PO HS 01/27/18 verapamil 120 mg 24 hr capsule,extended release 120 mg PO DAILY 30 Days #30 cap 08/24/18 levothyroxine 50 mcg capsule 50 mcg PO DAILY #90 cap 11/19/18 Meloxicam [Mobic] 15 mg PO HS 03/09/19 Duloxetine HCl 30 mg PO HS 04/24/19 Eszopiclone 3 mg PO HS 04/24/19 inFLIXimab [Remicade] 100 mg IV ONCE 04/24/19 Ciprofloxacin HCl 500 mg PO BID #8 tab 04/27/19 Metoclopramide HCl [Metoclopramide HCl Odt] 10 mg PO Q8H #9 tab.[email or web address] 04/27/19
[2019-04-27 11:42] VITALS: BP 114/65
[2019-05-01] MEDS ORDERED: METHOTREXATE SODIUM 2.5 MG TABLET PO SCH (09:00)
== END 2019-04-27 10:35 | disposition home or self-care (01) | DRG 390 ==
LOC: ER 03:58 → MS 08:00
PROVIDERS: ADMIT Family Medicine; ATTEND Internal Medicine
CPT/HCPCS: 36415; 71010; 71045; 74177; 80053; 81001; 82550; 82553; 83605; 83690; 84145; 84484; 85025; 86140; 87040; 87086; 87400; 87449; 96361; 96374; 96375; 96376; 99285; J2405; Q9967